=== PATIENT | female | born 2000 | race Caucasian/White ===

== ENCOUNTER 2021-12-29 14:35 | Emergency (ER) | payer OTHER ==
[~2021-12-29] VITALS: Ht 157.5 cm; Wt 47.7 kg
[2021-12-29 14:47] VITALS: TEMP 98.2
[2021-12-29 16:04] LABS: COLLECTION METHOD CLEAN CATCH
[2021-12-29 16:14] LABS: MUCOUS Present (NOT PRESENT); PH 6 (5-8); SQUAMOUS EPITHELIAL 0-2 /hpf (0-10); URINE APPEARANCE Hazy (CLEAR/HAZY); URINE BACTERIA Rare /hpf (NONE SEEN); URINE BILIRUBIN Negative (NEGATIVE); URINE BLOOD Negative (NEGATIVE); URINE COLOR Yellow (YELLOW); URINE GLUCOSE Negative (NEGATIVE); URINE KETONE Negative (NEGATIVE); URINE LEUKOCYTE ESTERASE Negative (NEGATIVE); URINE NITRATE Negative (NEGATIVE); URINE PROTEIN(semi-quant) 1+ (NEGATIVE)
[2021-12-29 17:00] VITALS: BP 120/70; PULSE 80
== END 2021-12-29 17:00 | disposition home or self-care (01) ==
LOC: COL.ER 14:35
PROVIDERS: Emergency Medicine
DX: O99.891 Other specified diseases and conditions complicating pregnancy (principal); R55 Syncope and collapse; Z3A.00 Weeks of gestation of pregnancy not specified; Z28.310 Unvaccinated for COVID-19

== ENCOUNTER 2022-08-02 23:48 | Emergency (ER) | payer MEDICAID ==
[~2022-08-02] VITALS: Ht 157.5 cm; Wt 50.0 kg
[~2022-08-02 23:48] MED LIST: BACTRIM DS 8001 TAB PO
[2022-08-03 01:23] LABS: BASO % 0.3 % (0.0-2.0); EOS # 0.2 K/mm3 (0.0-0.7); EOS % 1.5 % (0.0-4.0); GRAN # 6.9 K/mm3 (1.4-6.5); HEMOGLOBIN 12.5 g/dl (12.5-16.0); LYMPH # 2.4 K/mm3 (1.2-3.4); LYMPH % 23.8 % (20.0-51.0); MEAN CELL VOLUME 88 fl (80.0-100.0); MEAN CORPUSCULAR HEMOGLOBIN 31 pg (27-31); MEAN CORPUSCULAR HGB CONC 35 g/dl (33.0-37.0); MEAN PLATELET VOLUME 8.9 fl (7.4-10.4); MONO # 0.6 K/mm3 (0.1-0.6); MONO % 6.1 % (1.7-9.3); PLATELET COUNT 277 K/mm3 (130-400); RED BLOOD COUNT 4.08 M/mm3 (4.10-5.30)
[2022-08-03 01:24] LABS: HEMATOCRIT 35.8 % (37.0-47.0)
[2022-08-03 01:40] LABS: ALBUMIN 3.8 gm/dL (3.5-5.0); BILIRUBIN,TOTAL 0.6 mg/dL (0.2-1.2); CALCIUM 9.5 mg/dL (8.4-10.2); CREATININE, serum 0.61 mg/dL (0.57-1.11); POTASSIUM 3.7 mmol/L (3.5-4.5); TOTAL PROTEIN 6.8 gm/dL (6.2-8.1)
[2022-08-03] MEDS ORDERED: ZOFRAN ODT4 MG PO (02:05)
[2022-08-03] MEDS ORDERED: NORCO 325 MG-51 TAB PO (02:05)
[2022-08-03 02:16] VITALS: BP 107/70; PULSE 79; TEMP 98.2
== END 2022-08-03 02:16 | disposition home or self-care (01) ==
LOC: COL.ER 23:48
PROVIDERS: Personal Emergency Response Attendant
DX: O26.891 Other specified pregnancy related conditions, first trimester (principal); R10.9 Unspecified abdominal pain; Z3A.12 12 weeks gestation of pregnancy
CPT/HCPCS: J2270; J2405; J7030

== ENCOUNTER 2022-12-07 17:43 | Outpatient (CLI) | payer MEDICAID ==
[~2022-12-07] VITALS: Ht 157.5 cm; Wt 64.7 kg
[~2022-12-07 17:43] MED LIST changes: +NATURAL MAGNES200 MG PO; +NORCO 325 MG-51 TAB PO; +PRENATAL; +ZOFRAN ODT4 MG PO
--- NOTE | 2022-12-07 17:50 | NUR ---
1750 PT AMBULATORY TO UNIT WITH SUPPORT PERSON. PT COMPLAINS OF ACHE UNDER RIBS ON RIGHT SIDE AND NAUSEA WITH OCCASIONAL VOMITTING. PT TAKES ZOFRAN AND FEELS BETTER BUT DID NOT TAKE ZOFRAN TODAY. PT THREW UP ONCE TODAY. HAS BEEN ABLE TO KEEP WATER DOWN. ONLY ATE CHIPS FOR LUNCH. POSITIVE MOVEMENT, NO LOF, NO CTX,
--- NOTE | 2022-12-07 18:10 | NUR ---
PT CAN D/C HOME. [facility] TRACING CAT 1. LABS LOOKED GOOD IN OFFICE. DRINK WATER AND TAKE TYLENOL.
[2022-12-07 18:17] VITALS: BP 146/88; PULSE 102
== END 2022-12-07 18:20 | disposition home or self-care (01) ==
LOC: LDRO 17:43
DX: O26.893 Other specified pregnancy related conditions, third trimester (principal); R07.81 Pleurodynia; Z3A.30 30 weeks gestation of pregnancy